=== PATIENT | female | born 1975 | race Caucasian/White ===

== ENCOUNTER 2017-01-30 13:29 | Inpatient (IN) ==
--- NOTE | 2017-01-29 22:58 | Discharge Summary ---
<Ellen Goddard - Last Filed: 01/29/17 22:55> Date of Encounter: 01/29/17 - Discharge Diagnosis (1) Arthritis of knee, right Priority: Primary Status: Acute (2) Status post total knee replacement Priority: Primary Status: Acute Qualifiers: Laterality: right Qualified Code(s): Z96.651 - Presence of right artificial knee joint (3) Smoker Priority: Secondary Status: Chronic (4) HTN (hypertension) Priority: Secondary Status: Chronic Qualifiers: Hypertension type: essential hypertension Qualified Code(s): I10 - Essential (primary) hypertension (5) Obesity Priority: Secondary Status: Chronic Qualifiers: Obesity type: due to excess calories Obesity classification: unspecified obesity classification Serious obesity comorbidity presence: without serious comorbidity Qualified Code(s): E66.09 - Other obesity due to excess calories (6) Depression Priority: Secondary Status: Chronic Qualifiers: Depression Type: unspecified Qualified Code(s): F32.9 - Major depressive disorder, single episode, unspecified - Discharge Medications Home Medications: Amitriptyline [Elavil] 50 mg PO HS 09/11/15 [History] Gabapentin [Neurontin] 800 mg PO TID 09/11/15 [History] Metoprolol XL (24 HR) Succ [Toprol Xl] 50 mg PO DAILY 09/11/15 [History] Tizanidine HCl [Zanaflex] 4 mg PO TID PRN 09/11/15 [History] Buspirone HCl [Buspar] 10 mg PO DAILY 04/20/16 [History] Citalopram Hydrobromide [Citalopram HBr] 40 mg PO DAILY 04/20/16 [History] Hyoscyamine SL [Levsin Sl] 0.125 mg SL Q4H 04/20/16 [History] Omeprazole [PriLOSEC] 20 mg PO DAILY 04/20/16 [History] Aspirin Enteric Coated [Aspirin EC] 325 mg PO DAILY #21 tablet. 01/29/17 [Rx] OxyCODONE Immed Rel [Roxicodone 5 MG] 5 - 10 mg PO Q6H PRN #30 tablet 01/29/17 [ Rx] Aspirin [Lo-Dose Aspirin EC] 81 mg PO DAILY 01/30/17 [History] Ibuprofen [Motrin] 800 mg PO Q8HR 01/30/17 [History] Allergies/Adverse Reactions: Allergies latex Allergy (Verified 01/30/17 15:09) Blister - testing for on 01/27/17 Primary care physician: Luz Maria Landers CNP - Patient Status Disposition: Home, Self-Care Condition: Good - Discharge Instructions Follow Up With: Luz Maria Landers CNP [Primary Care Provider] - - Hospital Course Hospital course: Ms. Vidal is a 41 year old female - Time Spent with Patient Total time spent providing and/or coordinating discharge services: <Wei Baeza - Last Filed: 02/01/17 08:23> Date of Encounter: 02/01/17 Time of Encounter: 08:22 - Discharge Diagnosis (1) Arthritis of knee, right Priority: Primary Status: Chronic (2) Status post total knee replacement Priority: Primary Status: Acute Qualifiers: Laterality: right Qualified Code(s): Z96.651 - Presence of right artificial knee joint (3) Smoker Priority: Secondary Status: Chronic (4) HTN (hypertension) Priority: Secondary Status: Chronic Qualifiers: Hypertension type: essential hypertension Qualified Code(s): I10 - Essential (primary) hypertension (5) Obesity Priority: Secondary Status: Chronic Qualifiers: Obesity type: due to excess calories Obesity classification: unspecified obesity classification Serious obesity comorbidity presence: without serious comorbidity Qualified Code(s): E66.09 - Other obesity due to excess calories (6) Depression Priority: Secondary Status: Chronic Qualifiers: Depression Type: unspecified Qualified Code(s): F32.9 - Major depressive disorder, single episode, unspecified (7) Acute blood loss anemia Status: Acute Primary care physician: Luz Maria Landers CNP - Patient Status Functional capacity at discharge: uses cane/walker Overall status at discharge: patient is progressing back to baseline - Hospital Course Hospital course: Ms. Vidal is a 41 year old female - Time Spent with Patient Total time spent providing and/or coordinating discharge services:
[2017-01-30] MEDS ORDERED: Lidocaine -MPF 1% 2 ML VIAL ID ONE (13:55)
[2017-01-30] MEDS ORDERED: CeFAZolin Pre 2,000 MG/100 ML 2,000 MG/100 ML BAG IVPB ONE (13:55)
[2017-01-30] MEDS ORDERED: Albuterol 2.5 MG/3 ML NEBULIZER IH ONE (13:55)
[2017-01-30] MEDS ORDERED: Albuterol 2.5 MG/3 ML NEBULIZER ONE (13:58)
[2017-01-30] MEDS ORDERED: Lidocaine -MPF 2% 2 ML VIAL ONE (13:59)
[2017-01-30] MEDS ORDERED: *HR* FentaNYL (PF) 100 MCG/2 ML VIAL ONE ×2 (13:59→16:15)
[2017-01-30] MEDS ORDERED: *HR* Midazolam HCl 2 MG/2 ML VIAL ONE (13:59)
[2017-01-30] MEDS ORDERED: Ringers Solution, Lactated 1,000 ML IVC SCH ×2 (14:00→18:32)
[2017-01-30] MEDS ORDERED: *HR* Propofol 200 MG/20 ML VIAL IVP ONE (14:00)
--- NOTE | 2017-01-30 14:08 | History & Physical Report ---
Date of Encounter: 01/30/17 Time of Encounter: 14:08 24 Hour HP Update - Instructions Instructions: If the History and Physical is less than 30 days old and was completed prior to A.M. admission and or procedure and has NOT been updated on calendar day of procedure please complete this update prior to performing procedure. - Update Patient reports changes in Medical Condition: No Changes in examination, assessment, or condition: No Changes in Medication: No Preop tests/diagnostics Reviewed: Yes Surgery Remains Indicated: Yes Consent for Planned Operative Procedure(s) Verified: Yes - Pre-Operative Checklist Preoperative Checklist Indicated: No Prophylactic Antibiotic Ordered: Yes Is VTE Prophylaxis Indicated?: Yes
[2017-01-30] MEDS ORDERED: Famotidine 20 MG/2 ML VIAL IVP ONE (14:20)
--- NOTE | 2017-01-30 15:02 | Anesthesia Evaluation PreOp ---
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125 mg SL Q4H 04/20/16 [History] Omeprazole [PriLOSEC] 20 mg PO DAILY 04/20/16 [History] Aspirin Enteric Coated [Aspirin EC] 325 mg PO DAILY #21 tablet. 01/29/17 [Rx] OxyCODONE Immed Rel [Roxicodone 5 MG] 5 - 10 mg PO Q6H PRN #30 tablet 01/29/17 [ Rx] Allergies latex Allergy (Verified 01/27/17 08:35) Blister - testing for on 01/27/17 - Meds/Allergy Pre-op Review Medications Reviewed: Yes Allergies Reviewed: Yes Beta Blockers on Current Med List: No Anesthesia Results - Labs Laboratory Tests 01/27/17 01/27/17 08:57 08:57 Hgb 13.5 Hct 38.9 Plt Count 258 Sodium 138 Potassium 3.5 BUN 13 Creatinine 1.11 - Imaging EKG: report reviewed (SR) Additional studies: Cardiac Cath nl 2016 LVEF 60% Anesthesia Exam O2 Sat Height 1.57 m Height 1.57 m Height 1.57 m Weight 98.43 kg Weight 98.43 kg Weight 98.43 kg O2 Sat by Pulse Oximetry 96 O2 Sat by Pulse Oximetry 96 Vital Signs Temp Pulse Resp BP Pulse Ox 98.8 F 79 18 175/84 96 01/30/17 13:46 01/30/17 13:46 01/30/17 13:46 01/30/17 13:46 01/30/17 13:46 Height: 5'2 Weight: 217 lbs NPO (# of Hours): MN Pain Scale: 0 - HEENT Pupil (Motor): Pupils equal, EOMI Mallampati: II Teeth: Normal Oral Opening: Greater than 3 - CHIEF RELAY TESTER LOC: Oriented CHIEF RELAY TESTER Motor: Normal RUE, Normal LUE, Normal RLE, Normal LLE, Normal Face CHIEF RELAY TESTER Sensory: Normal: RUE, LUE, RLE, LLE, Face - Cardiac Rhythm: Regular Murmur: None JVD: No Carotid Bruit: No - Pulmonary Breath Sounds: bilateral Clear Respiratory Effort: Symmetrical Anesthesia Assess/Plan ASA Score: 3 (MO HTN) Modified Snyder Scale for Level of Consciousness: Cooperative, oriented, and tranquil Anesthetic Plan: General, Regional Monitoring Plan: Standard Monitors Recovery Plan: PACU (Discussed GA and RA, agrees to proceed)
[2017-01-30] MEDS ORDERED: ROPIVACAINE HCL/PF 0.5% 30 ML VIAL ONE (15:27)
[2017-01-30] MEDS ORDERED: Bupivacaine/Clonidine Syringe 1 EACH SYRINGE ONE (15:28)
[2017-01-30] MEDS ORDERED: Tetracaine/PF 20 MG/2 ML AMPUL ONE (15:28)
--- NOTE | 2017-01-30 15:52 | Anesthesia Procedures ---
Date of Encounter: 01/30/17 Time of Encounter: 15:00 Procedures: Anesthesia - Nerve Block Procedure Date: 01/30/17 Time: 16:35 Pre-op Diagnosis: Rt Knee Arthropathy Surgical Procedure: Rt TKA Checklist: Correct Patient Identifier Correct side: Right Blood Thinner: No Monitor Applied: EKG, BP, Pulse Oximetry Supplemental Oxygen via Nasal Cannula (L/min): 2 Sedation: Versed (mg): 2 Sedation: Fentanyl (mcg): 100 Indication: Post Op Analgesia Pre-op Neuro Deficits: No Block Type: Femoral, Other (IPACK) Catheter placed: No Depth at skin (cm): 3 Sterile Technique: Yes Ultrasound used: Yes Anatomy identified: Yes Visual spread of Local: Yes Neuro Stimulation: Yes Nerve Stimulator Range: >0.4 - 0.6 mA Blood on Needle Aspiration: No Smooth Injection of Local: Yes Pain with Injection of Local: No Prep: Chlorhexadine Needle: 22 x 50 mm Stimuplex Local: 0.25% Bupivicaine w/Clonidine 20 mcg/cc, Tetracaine (20), Ropivacaine ( 0.5%) Volume (cc): 30 Number of Attempts: 1 Complications: None/effective block Vitals: Vital Signs/O2 Sat/Glucose, Most Current Temp Pulse Resp BP Pulse Ox 01/30/17 15:29 74 16 157/105 98 01/30/17 14:12 18 96 01/30/17 13:46 98.8 F 79 18 175/84 96
[2017-01-30] MEDS ORDERED: *HR* Succinylcholine 200 MG/10 ML VIAL IVP ONE (16:26)
[2017-01-30] MEDS ORDERED: Dexamethasone 4 MG/ML VIAL ONE (16:29)
[2017-01-30] MEDS ORDERED: *HR* Morphine 10 MG/ML VIAL ONE (17:04)
--- NOTE | 2017-01-30 17:04 | Orthopedic Operative Note ---
Date of procedure: 01/30/17 Pre-op diagnosis: Right knee arthritis Post-op diagnosis: same Procedure: Procedure: Right Total knee replacement Estimated blood loss: 200 cc Hardware: Metal and polyethylene replacement. Arthrex Femur: 4 Tibia: 2 PS insert: 11 Patella: 34 Exam Under anesthesia: Full flexion and extension no instability Procedural Notes: Grade 4 arthritic changes patellofemoral joint grade 3 arthritic changes lateral compartment. Operative procedure: The patient was brought to the operating room and placed on the operating room table. After general anesthesia was administered the operative knee was examined. Findings were noted in the exam under anesthesia. The operative extremity was prepped and draped in sterile surgical fashion. The patient received IV antibiotics prior to skin incision. A standard midline incision was made centered over the patella. The incision was made through the skin and subcutaneous tissue. A medial parapatellar tendon approach was performed. Care was taken to preserve tissue along the medial aspect of the patella. And to protect the patella tendon. The deep MCL was released off the medial tibia. The infra patella fat pad was excised. Knee was brought into flexion. She noted to have grade grade 4 arthritic changes patellofemoral joint grade 3 arthritic changes lateral compartment. The entry hole was made for the intramedullary femoral guide. The guide was seated in 6 degrees of valgus. Anterior cut was made followed by the distal cut. The ACL the PCL the medial and the lateral menisci were excised. The tibia was subluxed forward. The entry hole was made for the intramedullary tibial guide. Guide was seated to resect 2 mm off the more abnormal side. The knee was brought into flexion the distal femur was sized for. The femoral guide was seated, the anterior cut was made followed by the posterior condylar cut, followed by the chamfer cuts. The finishing guide was seated the box cut was made and the lug holes were drilled. The tibia was sized 2, the tibial tray was seated and prepared with the large drill followed by the fin cutter. Trial reduction revealed full extension no varus valgus instability with the appropriate 11 PS Cecile. The patella was everted and cut was made at the level of the insertion of the quadriceps and patella tendon. The patella was sized 34 the guide was seated and the lug holes are drilled. Trial reduction revealed excellent patella tracking. All trial components were removed all bony surfaces were irrigated. The tibia was cemented first followed by the femur. The 11 PS Cecile was seated and the knee was brought into full extension. The patella was cemented and held in place with the patellar holding clamp. After the cement had hardened, the knee sat for 2 minutes with a Betadine saline solution. The knee was then irrigated out with 2 L of pulse irrigation. The BETSY Roth close the knee. The extensor mechanism was closed with #2 FiberWire suture and #2 PDS suture. The subcutaneous tissue was then irrigated and closed deep with #1 PDS suture superficially with 0 PDS suture and skin was closed with skin antonietta. The patient was then placed in a sterile dressing and a postoperative brace extubated and transferred to recovery room in stable condition. Anesthesia: GETA Surgeon: Wei Baeza Condition: stable Disposition: PACU
[2017-01-30 17:35] LABS: Hematocrit 31.7 % (35.3-44.9)
[2017-01-30] MEDS: *HR* HYDROmorphone (PF) 1 MG/ML SYRINGE IVP PRN ×2 (17:35→17:43)
[2017-01-30 17:38] LABS: Hemoglobin 11.3 g/dL (11.5-15.4)
[2017-01-30] MEDS ORDERED: *HR* Labetalol 20 MG/4 ML SYRINGE IVP ONE (17:53)
[2017-01-30] MEDS: *HR* Labetalol 20 MG/4 ML SYRINGE IVP PRN ×2 (17:55→18:07)
[2017-01-30] MEDS ORDERED: *HR* Enoxaparin 30 MG/0.3 ML SYRINGE SQ SCH (18:00)
--- NOTE | 2017-01-30 18:03 | Anesthesia Evaluation Post Op ---
Date of Encounter: 01/30/17 Time of Encounter: 18:02 - Vital Signs Vital Signs: Vital Signs/O2 Sat, Most Current Temp Pulse Resp BP Pulse Ox 98.0 F 87 18 155/89 97 01/30/17 17:55 01/30/17 17:55 01/30/17 17:55 01/30/17 17:55 01/30/17 17:55 - Lungs Lungs: Clear Ascult./Percussion - Airway Airway: Non-obstructed - Cardiovascular Regular Rate - Mental Status Mental Status: Alert & Oriented, Answers Appropriately - Pain Pain Scale: 5 Pain Scale used: Numeric (1 - 10) - Nausea Vomiting Nausea Vomiting: Not Present - Hydration Hydration: Ice chips, Has not voided - Discharge PostOp Status: Transfer Patient to floor
[2017-01-30] MEDS ORDERED: *HR* HYDROmorphone (PF) 1 MG/ML SYRINGE IVP PRN (18:32)
[2017-01-30] MEDS ORDERED: Ondansetron 4 MG/2 ML VIAL IVP PRN (18:32)
[2017-01-30] MEDS ORDERED: Temazepam 15 MG CAPSULE PO PRN (18:32)
[2017-01-30] MEDS ORDERED: Naloxone 0.4 MG/ML INJ IVP PRN (18:32)
[2017-01-30] MEDS ORDERED: *HR* OxyCODONE Immed Rel 5 MG TABLET PO PRN (18:32)
[2017-01-30] MEDS ORDERED: MOM Conc 10 ML UD.LIQ PO PRN (18:32)
[2017-01-30] MEDS ORDERED: tiZANidine 4 MG TABLET PO PRN (18:32)
[2017-01-30] MEDS ORDERED: Sennosides 8.6 MG TABLET PO PRN (21:00)
[2017-01-30] MEDS: Gabapentin 400 MG CAPSULE PO SCH (22:10)
[2017-01-30] MEDS: Hyoscyamine SL 0.125 MG TAB.SUBL SL SCH ×2 (22:10→22:22)
[2017-01-30] MEDS: ceFAZolin 2,000 MG in D5% in Water 100 ML IVPB SCH (22:10)
[2017-01-31] MEDS: Ibuprofen 800 MG TABLET PO SCH ×3 (00:34→16:17)
[2017-01-31] MEDS: ceFAZolin 2,000 MG in D5% in Water 100 ML IVPB SCH (03:13)
[2017-01-31] MEDS: Hyoscyamine SL 0.125 MG TAB.SUBL SL SCH ×6 (03:14→21:27)
[2017-01-31] MEDS: *HR* Enoxaparin 30 MG/0.3 ML SYRINGE SQ SCH ×2 (05:10→18:56)
[2017-01-31 05:28] LABS: Hemoglobin 10.5 g/dL (11.5-15.4)
[2017-01-31 05:34] LABS: Calcium 8.2 mg/dL (8.6-10.8); Potassium 4.2 mEq/L (3.5-4.5)
[2017-01-31] MEDS: *HR* OxyCODONE Immed Rel 5 MG TABLET PO PRN ×4 (06:22→21:27)
--- NOTE | 2017-01-31 06:58 | Orthopedics Progress Note ---
Date of Encounter: 01/31/17 Time of Encounter: 06:58 - Assessment and Plan (1) Arthritis of knee, right Current Visit: Yes Status: Chronic (2) Status post total knee replacement Current Visit: Yes Status: Acute Qualifiers: Laterality: right Qualified Code(s): Z96.651 - Presence of right artificial knee joint (3) Smoker Current Visit: Yes Status: Chronic (4) HTN (hypertension) Current Visit: Yes Status: Chronic Qualifiers: Hypertension type: essential hypertension Qualified Code(s): I10 - Essential (primary) hypertension (5) Obesity Current Visit: Yes Status: Chronic Qualifiers: Obesity type: due to excess calories Obesity classification: unspecified obesity classification Serious obesity comorbidity presence: without serious comorbidity Qualified Code(s): E66.09 - Other obesity due to excess calories (6) Depression Current Visit: Yes Status: Chronic Qualifiers: Depression Type: unspecified Qualified Code(s): F32.9 - Major depressive disorder, single episode, unspecified Subjective Interval history: Patient was seen this morning doing well without complaints. Afebrile vital signs stable. Operative extremity: Neurovascularly intact Dressing clean dry and intact Calves nontender Assessment and plan: Continue with postoperative care Hematocrit 31, creatinine 1.691 monitor. Objective Vital signs: Vital Signs Temp Pulse Resp BP Pulse Ox 01/31/17 04:05 97.9 F 90 16 118/77 95 01/31/17 00:14 97.5 F L 73 20 110/73 96 01/30/17 22:16 97.6 F 77 15 109/66 97 01/30/17 19:19 97.7 F 78 16 119/66 98 01/30/17 18:33 97.9 F 74 16 126/74 96 01/30/17 18:15 98.0 F 78 16 124/77 96 01/30/17 18:05 78 18 150/91 99 01/30/17 17:55 98.0 F 87 18 155/89 97 01/30/17 17:45 84 20 166/90 95 01/30/17 17:35 89 18 149/95 94 01/30/17 17:25 97.4 F L 96 16 134/88 95 01/30/17 16:05 75 16 138/74 97 01/30/17 15:45 77 16 149/80 98 01/30/17 15:35 87 16 143/72 95 01/30/17 15:29 74 16 157/105 98 01/30/17 14:12 18 96 01/30/17 13:46 98.8 F 79 18 175/84 96 Intake and Output 01/30/17 01/30/17 01/31/17 15:59 23:59 07:59 Intake Total 150 / 150 1000 / 1000 Output Total 200 / 200 50 / 50 Balance -50 / -50 950 / 950 Intake: IV Fluids 100 / 100 Ancef 2,000 MG In 100 / 100 Dextrose 5% 100 ML @ 200 mls/hr IVPB Q8H [facility] Rx#: [id number] Oral 50 / 50 1000 / 1000 Output: Urine 50 / 50 Estimated Blood Loss 200 / 200 Other: Weight 98.43 kg 103.873 kg Patient Weight 01/31/17 23:59 Weight 103.873 kg - Labs CBC & BMP: 01/31/17 04:49 01/31/17 04:49 Labs: Abnormal lab results Hgb 10.5 g/dL (11.5-15.4) L 01/31/17 04:49 Hct 31.0 % (35.3-44.9) L 01/31/17 04:49 Sodium 131 mEq/L (136-145) L 01/31/17 04:49 Creatinine 1.69 mg/dL (0.57-1.11) H 01/31/17 04:49 Est GFR ( Amer) 40 (> 60) L 01/31/17 04:49 Est GFR (Non-Af Amer) 33 (> 60) L 01/31/17 04:49 Glucose 331 mg/dL (70-99) H 01/31/17 04:49 Calcium 8.2 mg/dL (8.6-10.8) L 01/31/17 04:49 - VTE Documentation of Mechanical Device: Venous foot pump, device Consult Discharge Plan - Plan Referrals: Luz Maria Landers CNP [Primary Care Provider] -
[2017-01-31] MEDS: Gabapentin 400 MG CAPSULE PO SCH ×3 (09:10→21:27)
[2017-01-31] MEDS: Aspirin Enteric Coated 81 MG Tablet PO SCH (09:10)
[2017-01-31] MEDS: Metoprolol XL (24 HR) Succ 50 MG TAB.ER.24H PO SCH (09:11)
--- NOTE | 2017-01-31 11:56 | Event Note ---
Date of Encounter: 01/31/17 Time of Encounter: 13:00 PCR - POD#1 - Right TKR Patient seen at bedside. GFR decreased to 33 this AM, baseline function is normal compared to pre-op labs. Will continue to encourage PO hydration, urinated once today, but apparently this is normal for her, no other urinary complaints. Will give bolus 500mL Pain control: adequate Participating in PT. All questions and concerns addressed. Educated on use of incentive spirometer, ambulation, and hydration. Patient educated on post-operative restrictions and care. Addressed: Hydration and repeating kidney labs in AM - Bolus today D/C plan:. 02/01/17 with outpatient PT.
[2017-01-31] MEDS ORDERED: 0.9 % Sodium Chloride 500 ML IVC ONE (13:08)
[2017-01-31] MEDS ORDERED: Acetaminophen IV 1,000 MG/100 ML INFUS..BTL IVPB PRN (16:38)
[2017-02-01] MEDS: Hyoscyamine SL 0.125 MG TAB.SUBL SL SCH ×2 (03:39→06:02)
[2017-02-01] MEDS: *HR* OxyCODONE Immed Rel 5 MG TABLET PO PRN ×2 (03:39→07:52)
[2017-02-01 05:45] LABS: Hematocrit 29.6 % (35.3-44.9); Hemoglobin 9.9 g/dL (11.5-15.4)
[2017-02-01 05:59] LABS: Calcium 9.2 mg/dL (8.6-10.8); Potassium 4.1 mEq/L (3.5-4.5)
[2017-02-01] MEDS: *HR* Enoxaparin 30 MG/0.3 ML SYRINGE SQ SCH (06:02)
[2017-02-01 06:36] VITALS: BP 154/88
[2017-02-01] MEDS ORDERED: 0.9 % Sodium Chloride 500 ML IVC ONE (07:20)
[2017-02-01] MEDS: Gabapentin 400 MG CAPSULE PO SCH (07:37)
[2017-02-01] MEDS: Metoprolol XL (24 HR) Succ 50 MG TAB.ER.24H PO SCH (07:37)
[2017-02-01] MEDS: Aspirin Enteric Coated 81 MG Tablet PO SCH (07:37)
--- NOTE | 2017-02-01 08:22 | Orthopedics Progress Note ---
Date of Encounter: 02/01/17 Time of Encounter: 08:22 - Assessment and Plan (1) Arthritis of knee, right Current Visit: Yes Status: Chronic (2) Status post total knee replacement Current Visit: Yes Status: Acute Qualifiers: Laterality: right Qualified Code(s): Z96.651 - Presence of right artificial knee joint (3) Smoker Current Visit: Yes Status: Chronic (4) HTN (hypertension) Current Visit: Yes Status: Chronic Qualifiers: Hypertension type: essential hypertension Qualified Code(s): I10 - Essential (primary) hypertension (5) Obesity Current Visit: Yes Status: Chronic Qualifiers: Obesity type: due to excess calories Obesity classification: unspecified obesity classification Serious obesity comorbidity presence: without serious comorbidity Qualified Code(s): E66.09 - Other obesity due to excess calories (6) Depression Current Visit: Yes Status: Chronic Qualifiers: Depression Type: unspecified Qualified Code(s): F32.9 - Major depressive disorder, single episode, unspecified Subjective Interval history: Patient was seen this morning doing well without complaints. Afebrile vital signs stable. Operative extremity: Neurovascularly intact Dressing clean dry and intact Calves nontender Assessment and plan: Continue with postoperative care Creatinine improving, plan for discharge today. Objective Vital signs: Vital Signs Temp Pulse Resp BP Pulse Ox 02/01/17 06:34 98.4 F 85 20 154/88 93 02/01/17 00:54 98.3 F 71 18 140/84 96 01/31/17 20:01 97.8 F 70 16 105/69 94 01/31/17 15:53 98.2 F 80 16 126/74 92 01/31/17 11:41 97.7 F 71 16 101/62 92 Intake and Output 01/31/17 02/01/17 02/01/17 23:59 07:59 15:59 Intake Total 1070 / 1070 580 / 580 Output Total 1275 / 1275 400 / 400 Balance -205 / -205 180 / 180 Intake: IV Fluids 100 / 100 Ofirmev 1,000 mg/100 ml 1 100 / 100 ,000 mg In 100 ml @ 400 mls/hr IVPB Q6HR PRN Rx#: [id number] Oral 1070 / 1070 480 / 480 Output: Urine 850 / 850 400 / 400 Straight Cath 425 / 425 Other: Meal Dinner Percent of Meal Consumed 100% # Voids 1 1 - Labs CBC & BMP: 02/01/17 05:21 02/01/17 05:21 Labs: Abnormal lab results Hgb 9.9 g/dL (11.5-15.4) L 02/01/17 05:21 Hct 29.6 % (35.3-44.9) L 02/01/17 05:21 BUN 21 mg/dL (7-20) H 02/01/17 05:21 Creatinine 1.64 mg/dL (0.57-1.11) H 02/01/17 05:21 Est GFR ( Amer) 41 (> 60) L 02/01/17 05:21 Est GFR (Non-Af Amer) 34 (> 60) L 02/01/17 05:21 Glucose 252 mg/dL (70-99) H 02/01/17 05:21 - VTE Documentation of Mechanical Device: Venous foot pump, device Consult Discharge Plan - Plan Referrals: Luz Maria Landers, [employer] [Primary Care Provider] -
== END 2017-02-01 11:04 | disposition home or self-care (01) | DRG 470 ==
LOC: SAMDAY 13:29 → 3NENU 18:19
PROVIDERS: ADMIT Orthopaedic Surgery; ATTEND Orthopaedic Surgery